=== PATIENT | female | born 1980 | race African-American/Black ===

== ENCOUNTER 2019-07-29 21:10 | Emergency (ER) | payer OTHER ==
[2019-07-29] MEDS ORDERED: OSELTAMIVIR PHOSPHATE 75 MG CAPSULE PO ONE (21:29)
[2019-07-29] MEDS ORDERED: ACETAMINOPHEN 500 MG TABLET (FP) PO ONE (21:29)
[2019-07-29 21:32] VITALS: BP 138/87; PULSE 100; TEMP 101.4; BMI 35.2
[2019-07-29] MEDS ORDERED: ACETAMINOPHEN 500 MG TABLET (FP) ONE (21:40)
[2019-07-29] MEDS ORDERED: OSELTAMIVIR PHOSPHATE 75 MG CAPSULE ONE (21:40)
--- NOTE | 2019-07-29 21:55 | PDOC ---
Documentation entered by Marivel Kim SCRIBE, acting as scribe for Rod Gardner MD. Rod Gardner MD: This documentation has been prepared by the eileenibe, Marivel Kim SCRIBE, under my direction and personally reviewed by me in its entirety. I confirm that the documentation accurately reflects all work, treatment, procedures, and medical decision making performed by me. History of Present Illness - General Chief Complaint: Respiratory Stated Complaint: FLU Time Seen by Provider: 07/29/19 21:27 History Source: Patient Exam Limitations: No Limitations - History of Present Illness Initial Comments: 07/29/19 21:49 Patient is a 38 year old female with no significant past medical history who presents to the ED with 1 day of flu like symptoms. Patient reports having fever, chills, non-productive cough,body aches and left ear pain. She denies receiving the flu shot. She reports taking advil this morning without any relief of symptoms prompting her to the ER. PAST MEDICAL HISTORY: no significant history PAST SURGICAL HISTORY: no significant history FAMILY HISTORY: no pertinent history SOCIAL HISTORY: Pt lives with family and is employed. MEDICATIONS: reviewed ALLERGIES: As per nursing notes General: + fevers.+ chills.+body ache.No weight loss HEENT:+left ear pain. No change in vision. No sore throat. CardioVascular: No chest pain or shortness of breath Respiratory:+ cough. No wheezing. Gastrointestinal: no nausea, vomiting, diarrhea or constipation, No rectal bleeding Genitourinary: No dysuria, hematuria, or frequency Musculoskeletal: No joint or muscle pain or swelling Neurologic: No headache, vertigo, dizziness or loss of consciousness Psychiatric: nor depression Skin: No rashes or easy bruising Endocrine: no increased thirst or abnormal weight change Allergic: no skin or latex allergy All other systems reviewed and normal General: Well-nourished well-developed individual, no acute distress HEENT: Throat: Normal, tonsils normal, no erythema or exudate Neck: Supple, no meningeal signs, no lymphadenopathy Eyes::Pupils equal reactive and round, extraocular motion intact Chest: Nontender to palpation Cardiac: S1-S2 normal, regular rate and rhythm, no murmurs rubs or gallops Respiratory: Lungs clear to auscultation bilateral Extremities: Warm, dry, no cyanosis, clubbing, or edema Skin: No rashes Neuro: Alert and oriented x3, nonfocal exam, grossly intact, normal gait Psych: Normal mood and affect 07/29/19 21:54 Assessment and plan: This is a 38-year-old female who did not get a flu shot this year and comes in with influenza-like illness symptoms x1 day. Patient has not taken anything for her fever since this morning. Patient given Tylenol here in the ED and started on Tamiflu. Patient discharged home will follow-up with her primary care doctor. Past History - Past Medical History Allergies/Adverse Reactions: Allergies Allergy/AdvReac Type Severity Reaction Status Date / Time No Known Allergies Allergy Verified 11/15/14 14:16 Home Medications: Ambulatory Orders NK [No Known Home Medication] 07/29/19 - Psycho Social/Smoking Cessation Hx Smoking History: Never smoked Number of Cigarettes Smoked Daily: 0 Hx Alcohol Use: No Drug/Substance Use Hx: No Substance Use Type: None *Physical Exam - Vital Signs Last Vital Signs Temp Pulse Resp BP Pulse Ox 101.4 F H 100 H 16 138/87 95 07/29/19 21:25 07/29/19 21:25 07/29/19 21:25 07/29/19 21:25 07/29/19 21:25 ED Treatment Course - Medications Given in the ED: ED Medications Discontinued Medications Generic Name Dose Route Start Last Admin Trade Name Daniel PRN Reason Stop Dose Admin Acetaminophen 1,000 mg 07/29/19 21:29 07/29/19 21:43 Tylenol - PO 07/29/19 21:30 1,000 mg ONCE ONE Administration Oseltamivir Phosphate 75 mg 07/29/19 21:29 07/29/19 21:43 Tamiflu - PO 07/29/19 21:30 75 mg ONCE ONE Administration Discharge - Discharge Information Problems reviewed: Yes Clinical Impression/Diagnosis: Influenza-like illness Condition: Good Disposition: HOME - Admission No - Follow up/Referral Referrals: Demian Orlando [Primary Care Provider] - - Patient Discharge Instructions Additional Instructions: Take Tamiflu 1 tablet twice a day for 5 days. Alternate acetaminophen with ibuprofen every 3-4 hours as needed for fevers, headache, body aches and symptoms Return to the emergency department immediately with ANY new, persistent or worsening symptoms. Continue any medications as previously prescribed by your physician. You should follow up with your primary doctor as soon as possible regarding today's emergency department visit. . Please make sure your doctor reviews the results of your emergency evaluation. Thank you for coming to the Emergency Department today for your care. It was a pleasure to see you today. Please note that your evaluation is INCOMPLETE until you follow-up with your doctor. - Post Discharge Activity Work/Back to School Note: Back to Work
== END 2019-07-29 22:03 | disposition home or self-care (01) ==
LOC: FER 21:10
DX: J11.1 Influenza due to unidentified influenza virus with other respiratory manifestations (principal)
CPT/HCPCS: 99281-25

== ENCOUNTER 2021-03-22 18:01 | Emergency (ER) | payer OTHER ==
[2021-03-22 18:15] VITALS: BP 145/84; PULSE 73; TEMP 99.2; BMI 38.4
[2021-03-22] MEDS ORDERED: NAPROXEN 500 MG TABLET PO ONE (20:01)
[2021-03-22] MEDS ORDERED: NAPROXEN 500 MG TABLET ONE (20:11)
== END 2021-03-22 20:18 | disposition home or self-care (01) ==
LOC: FER 18:01
DX: M79.601 Pain in right arm (principal); G44.209 Tension-type headache, unspecified, not intractable
CPT/HCPCS: 93005; 99284-25

== ENCOUNTER 2022-10-30 20:15 | Emergency (ER) | payer OTHER ==
[2022-10-30 20:33] VITALS: BP 140/87; PULSE 72; RESP 15; TEMP 98.2; BMI 38.7
[2022-10-30] MEDS ORDERED: NAPROXEN 500 MG TABLET PO ONE (21:13)
[2022-10-30] MEDS ORDERED: METOCLOPRAMIDE HCL 10 MG TABLET (FP) PO ONE ×2 (21:13→21:19)
[2022-10-30] MEDS ORDERED: NAPROXEN 500 MG TABLET ONE (21:19)
== END 2022-10-30 22:05 | disposition home or self-care (01) ==
LOC: FER 20:15
DX: G44.209 Tension-type headache, unspecified, not intractable (principal); Z63.79 Other stressful life events affecting family and household
CPT/HCPCS: 93005; 99283-25

== ENCOUNTER 2024-04-17 14:23 | Emergency (ER) | payer OTHER ==
[2024-04-17 14:45] VITALS: BP 124/73; PULSE 86; RESP 18; TEMP 97.8; BMI 32.7
[2024-04-17] MEDS ORDERED: IBUPROFEN 600 MG TABLET (FP) PO ONE (15:09)
[2024-04-17] MEDS: IBUPROFEN 600 MG TABLET (FP) PO ONE (15:15)
[2024-04-17] MEDS ORDERED: LIDOCAINE 5% TOPICAL PATCH ONE (15:51)
[2024-04-17] MEDS: LIDOCAINE 5% TOPICAL PATCH TP ONE (16:05)
[2024-04-17] MEDS ORDERED: LIDOCAINE PATCH REMOVAL MC SCH (22:00)
== END 2024-04-17 17:17 | disposition home or self-care (01) ==
LOC: FER 14:23
DX: S49.92XA Unspecified injury of left shoulder and upper arm, initial encounter (principal); X58.XXXA Exposure to other specified factors, initial encounter
CPT/HCPCS: 73030-TC-LT-FY; 99283-25